=== PATIENT | male | born 2000 | race Caucasian/White ===

== ENCOUNTER 2020-12-30 15:52 | Emergency (ER) | payer BC, MEDICAID, SELFPAY ==
[2020-12-30 16:33] VITALS: BP 128/91; PULSE 90; RESP 12; TEMP 36.6; O2SAT 98; BMI 28.3
[2020-12-30 16:44] LABS: Apearance,Urine Clear (Clear); Color,Urine Yellow (Yellow); Glucose,Urine (UA) Negative (Negative); Protein,Urine Negative (Negative); Specific Gravity, Urine 1.025 (1.005-1.030)
[2020-12-30 16:45] LABS: Bilirubin,Urine Negative (Negative); Blood, Urine Negative (Negative); Ketones,Urine Negative (Negative); Urobilinogen,Urine 0.2 EU/dl (0.2)
[2020-12-30 16:46] LABS: UTC Leukocyte Esterase,Urine Negative (Negative); UTC Nitrate,Urine Negative (Negative)
--- NOTE | 2020-12-30 16:47 | HMH.EDUTC ---
[facility] Disposition Clinical Impression: Left testicular pain, Swelling of left testicle, Epididymitis Disposition: Home, Self-Care Condition on Discharge: Good Instructions: Epididymitis, DI for Epididymitis Additional Instructions: Take the medications as directed. Rest for the next few days. Don't be lifting weights or straining. Follow up with your primary care doctor in 48 to 72 hours. GO TO THE ER FOR ANY WORSENING SYMPTOMS OR CONCERNS Prescriptions: Ibuprofen [Ibuprofen 800mg Tablet] 800 mg PO Q8HP PRN #30 tab PRN Reason: Moderate Pain Transmission Status: Received by [id number] Doxycycline Hyclate [Doxycycline 100mg Capsule] 100 mg PO Q12 10 Days #20 cap Transmission Status: Received by [id number] Referrals: Greg Aleman MD [Primary Care Provider] - Forms: Work/School Release Time of Disposition: 18:12 Medical Decision Making - Medical Records Medical records reviewed: No: I reviewed the patient's medical records. - Cole Inquiry Pt receiving controlled substance: No Vital Signs: 12/30/20 16:33 12/30/20 18:27 Temperature 98 F 98 F Temperature Source Oral Pulse Rate 87 Pulse Rate [Left] 90 Respiratory Rate 12 16 Blood Pressure 125/83 Blood Pressure [Right Arm] 128/91 H Blood Pressure Mean [Right Arm] 103 02 Sat by Pulse Oximetry 98 - Lab Data Lab Results 12/30/20 16:42: Urine Color Yellow, Urine Appearance Clear, Urine pH 6.0, Ur Specific [place] 1.025, Urine Protein Negative, Urine Glucose (UA) Negative, Urine Ketones Negative, Urine Blood Negative, Urine Nitrate Negative, Urine Bilirubin Negative, Urine Urobilinogen 0.2, Ur Leukocyte Esterase Negative Orders (Tests/Meds): ED MEDICATIONS Discontinued Medications Generic Name Dose Route Start Last Admin Trade Name Freq PRN Reason Stop Dose Admin Ceftriaxone Sodium 1 gm 12/30/20 18:04 12/30/20 18:22 Ceftriaxone 1gm Vial IM 12/30/20 18:05 1 gm ONCE ONE Administration Protocol Ketorolac Tromethamine 60 mg 12/30/20 17:13 12/30/20 17:21 Ketorolac 60mg/2ml Vial IM 12/30/20 17:14 60 mg ONCE ONE Administration Lidocaine HCl 0 ml 12/30/20 18:04 12/30/20 18:22 Lidocaine 1% 5ml Pf Vial IM 12/30/20 18:05 2.5 ml ONCE ONE Administration ORDERS Category Date Time Status Urine Culture Stat Micro 12/30/20 18:00 Received - US Data US Images: Other (scrotal u/s) ED US Reviewed: Yes: I have reviewed the patient's US results, I have viewed radiologist's interpretation Preliminary Findings: Normal/NAD [facility] HPI - General Stated complaint: pelvis pain on left side and swollen testicle Time Seen by Provider: 12/30/20 16:47 Mode of Arrival: Ambulatory Source of Information: Patient Limitations: No Limitations Description of Symptoms (Recalled from Triage Doc. by RN): pt started having L testicular and L sided groin pain a few days ago along with some swelling. this occured while pt was in [facility]. pt states he lifted weights the first day but after that the only activity was walking around town. HEENT Symptoms (Recalled from RN notes): No Resp Symptoms (Recalled from RN notes): No Skin Symptoms (Recalled from RN notes): No MS Symptoms (Recalled from RN notes): No (L testicle/groin pain and swelling) Functional Status (Recalled from RN notes): na - History of Present Illness Provider Complaint: He states that he has left testicle pain and swelling that began 1 day ago. At this time he rates his pain as a 5/10. He denies any injury. He denies any burning with urination or difficulty voiding. He denies fever or chills. He does lift weights and he did lift yesterday. But he states that he worked his chest and arms out and did not strain very much. He denies any history of a hernia. - Related Data Previous Rx's Medication Instructions Recorded Doxycycline Hyclate [Doxycycline 100 mg PO Q12 10 Days #20 cap 12/30/20 100mg Capsule] Ibup
--- NOTE | 2020-12-30 17:12 | US_ITS ---
PROCEDURE INFORMATION: Exam: US Scrotum Exam date and time: 12/30/2020 5:12 PM Age: 20 years old Clinical indication: Scrotum pain; Patient HX: Left testicular pain no trauma TECHNIQUE: Imaging protocol: Real-time ultrasound of the scrotum and contents with color Doppler and image documentation. Spectral waveform analysis of the bilateral testis was not performed by the marketing technologist who performed the study. COMPARISON: No relevant comparison studies were made available at the time of interpretation. FINDINGS: Right testicle: The right testis measures 4.3 x 2.0 x 2.8 cm. Vascularity of the testis is present based on color Doppler imaging. No sonographic findings to suggest torsion on this study. No testicular mass. Left testicle: The left testis measures 3.7 x 2.1 x 2.9 cm. Vascularity of the testis is present based on color Doppler imaging. No sonographic findings to suggest torsion on this study. No testicular mass. Epididymides: The right epididymal head measures 0.9 cm in diameter. 5 x 3 mm anechoic structure without associated vascularity based on color Doppler imaging located in the region of the right epididymal head, likely reflecting a right epididymal head cyst. The left epididymal head measures 0.6 cm in diameter. The visualized portion of the epididymes appear symmetric in echogenicity and vascularity otherwise. Scrotum: Trace left hydrocele. IMPRESSION: No sonographic findings to suggest testicular torsion on this study. No testicular mass. Trace left hydrocele. Other findings noted above. The interpretation of this study is based on the receipt of a total image number of 33.
--- NOTE | 2020-12-30 17:12 | PC.NURSE ---
1710 spoke with US coordinator of online programs about the testicular US.
[2020-12-30 18:27] VITALS: BP 125/83; PULSE 87; RESP 16; TEMP 36.6
[2021-01-01 23:45] LABS: Neisseria gonorrhoeae, NAA Negative (Negative)
== END 2020-12-30 18:39 | disposition home or self-care (01) ==
PROVIDERS: Emergency Provider Nurse Practitioner Family; PCP Internal Medicine Adolescent Medicine
DX: N45.1 Epididymitis (principal); N50.89 Other specified disorders of the male genital organs
CPT/HCPCS: 76870; 81003; 87086; 87491; 87591; 96372; 99202; G0463